=== PATIENT | female | born 1955 | race Caucasian/White ===

== ENCOUNTER 2018-01-15 14:58 | Outpatient (CLI) | payer OTHER | END 2018-01-15 14:59 | disposition home or self-care (01) | LOC: DTY/OP 14:58 | PROVIDERS: ATTEND Family Medicine | DX: E11.9 Type 2 diabetes mellitus without complications (principal) | CPT/HCPCS: 97802 ==

== ENCOUNTER 2018-02-13 19:30 | Outpatient (CLI) | payer OTHER | END 2018-02-13 19:31 | disposition home or self-care (01) | LOC: SLEEPLAB 19:30 | PROVIDERS: ATTEND Family Medicine | DX: G47.33 Obstructive sleep apnea (adult) (pediatric) (principal); E66.9 Obesity, unspecified; R53.83 Other fatigue; R06.83 Snoring; F32.9 Major depressive disorder, single episode, unspecified; E11.9 Type 2 diabetes mellitus without complications; I10 Essential (primary) hypertension; G47.00 Insomnia, unspecified; Z68.39 Body mass index [BMI] 39.0-39.9, adult | CPT/HCPCS: 95811 ==

== ENCOUNTER 2018-03-19 15:42 | Outpatient (CLI) | payer OTHER | END 2018-03-19 15:43 | disposition home or self-care (01) | LOC: BICMAMMO 15:42 | PROVIDERS: ATTEND Family Medicine | DX: Z12.31 Encounter for screening mammogram for malignant neoplasm of breast (principal) | CPT/HCPCS: 77063; 77067 ==

== ENCOUNTER 2019-03-05 15:36 | Emergency (ER) | payer OTHER ==
--- NOTE | 2019-03-05 16:32 | RAD ---
THREE VIEWS OF THE LEFT ANKLE: 03/05/19 COMPARISON: None. HISTORY: Ankle pain and swelling. FINDINGS: Three views of the left ankle shows moderate medial soft tissue swelling. There is a screw in the med ial malleolus from prior fracture repair. Severe degenerative changes are seen in the ankle joint. Th is may be secondary to posttraumatic osteoarthritis. IMPRESSION: Severe left ankle degenerative change without acute osseous abnormality. POS: CET
== END 2019-03-05 17:05 | disposition home or self-care (01) ==
LOC: SCSER 15:36
DX: S93.402A Sprain of unspecified ligament of left ankle, initial encounter (principal); M19.072 Primary osteoarthritis, left ankle and foot; E11.9 Type 2 diabetes mellitus without complications; E78.00 Pure hypercholesterolemia, unspecified; X50.9XXA Other and unspecified overexertion or strenuous movements or postures, initial encounter

== ENCOUNTER 2021-02-12 14:45 | Outpatient (CLI) | payer OTHER | END 2021-02-12 14:46 | disposition home or self-care (01) | LOC: BICMAMMO 14:45 | PROVIDERS: ATTEND Family Medicine | DX: Z12.31 Encounter for screening mammogram for malignant neoplasm of breast (principal); Z91.89 Other specified personal risk factors, not elsewhere classified | CPT/HCPCS: 77063; 77067 ==

== ENCOUNTER 2023-01-17 09:19 | Day surgery (SDC) | payer BC ==
[2023-01-16 12:48] VITALS: BMI 31.2
[2023-01-17] MEDS ORDERED: fentaNYL 50 mcg/mL 1 mL Vial ONE (11:49)
[2023-01-17] MEDS ORDERED: PROPOFOL 200 MG/20 ML VIAL ONE (12:09)
== END 2023-01-17 14:01 | disposition home or self-care (01) ==
LOC: SDC 09:19
PROVIDERS: ATTEND Internal Medicine Gastroenterology
PROC: 0DJ08ZZ Inspection of Upper Intestinal Tract, Via Natural or Artificial Opening Endoscopic (ICD-10-PCS; principal; 2023-01-17)
PROC: 0DJD8ZZ Inspection of Lower Intestinal Tract, Via Natural or Artificial Opening Endoscopic (ICD-10-PCS; principal; 2023-01-17)
DX: K74.60 Unspecified cirrhosis of liver (principal); I85.10 Secondary esophageal varices without bleeding; R63.4 Abnormal weight loss; K76.6 Portal hypertension; K31.89 Other diseases of stomach and duodenum; K57.30 Diverticulosis of large intestine without perforation or abscess without bleeding; K74.69 Other cirrhosis of liver; E11.9 Type 2 diabetes mellitus without complications; I10 Essential (primary) hypertension; N39.3 Stress incontinence (female) (male); E78.5 Hyperlipidemia, unspecified; I25.10 Atherosclerotic heart disease of native coronary artery without angina pectoris; Z68.31 Body mass index [BMI] 31.0-31.9, adult; Z86.010 Personal history of colon polyps; Z79.899 Other long term (current) drug therapy
CPT/HCPCS: 36416; J2704; J3010

== ENCOUNTER → 2023-03-07 | Day surgery (SDC) | payer BC ==
[2023-03-06 13:10] VITALS: BMI 31.2
[~2023-03-07] MED LIST: Ketamine 50 MG/ML (10ML VIAL) ONE; Lidocaine 1% MPF 2 ML VIAL ONE; PHENYLEPHRINE-NS 100 MCG/ML 10 ML SYRINGE ONE; PROPOFOL 200 MG/20 ML VIAL ONE
== END ==
LOC: SDC 06:01
PROVIDERS: ATTEND Internal Medicine Gastroenterology
DX: I85.00 Esophageal varices without bleeding (principal); K74.60 Unspecified cirrhosis of liver; K76.6 Portal hypertension; K31.89 Other diseases of stomach and duodenum; K76.0 Fatty (change of) liver, not elsewhere classified; K64.9 Unspecified hemorrhoids; I10 Essential (primary) hypertension; E78.5 Hyperlipidemia, unspecified; E11.9 Type 2 diabetes mellitus without complications; F41.9 Anxiety disorder, unspecified; R63.4 Abnormal weight loss; F32.A Depression, unspecified; Z86.010 Personal history of colon polyps; Z68.31 Body mass index [BMI] 31.0-31.9, adult; Z79.899 Other long term (current) drug therapy
CPT/HCPCS: 36416; J2704

== ENCOUNTER 2023-06-23 09:40 | Outpatient (CLI) | payer BC ==
[2023-06-23 11:05] LABS: #Monocytes 0.5 10x3/uL (0.0-1.1); #Neutrophils 3.4 10x3/uL (1.5-8.4); %Basophils 0.4 % (0.0-2.0); %Eosinophils 0.6 % (0.0-6.0); %Lymphocytes 23.6 % (18.0-47.0); Hematocrit 45.8 % (34.9-44.5); Hemoglobin 15.5 g/dL (12.0-15.5); Mean Corpuscular HGB CONC 33.8 g/dL (32.0-36.0); Mean Corpuscular Volume 91.6 fl (81.6-98.3); Mean Platelet Volume 10.4 fl (7.4-10.4); Platelet Count 148 10x3/uL (150-450); RBC Distribution Width 14.6 % (11.5-14.5); White Blood Cell (WBC) Count 5.2 10x3/uL (3.5-10.5)
[2023-06-23 11:45] LABS: ALT (SGPT) 17 U/L (8-55); AST (SGOT) 25 U/L (5-34); Albumin 4.2 g/dL (3.4-4.8); Alkaline Phosphatase 65 U/L (40-110); Anion Gap 14 mmol/L (10-20); BUN (Urea Nitrogen) 7 mg/dL (9.8-20.1); Bilirubin, Total 0.6 mg/dL (0.2-1.2); Calc. Creatinine Clearance 0 mL/min (70-130); Calcium 9.3 mg/dL (7.8-10.44); Carbon Dioxide 24 mmol/L (23-31); Chloride 103 mmol/L (98-107); Estimated GFR 95; Globulin 3.6 g/dL (2.4-3.5); Glucose 118 mg/dL (80-115); Protein, Total 7.8 g/dL (5.8-8.1); Sodium 137 mmol/L (136-145)
[2023-06-23 12:00] LABS: Cardiac Risk 4.3 (Less than 4.5); Cholesterol 254 mg/dl (< 200 Desired); HDL Cholesterol 59 mg/dL (>60 Neg Risk); LDL Cholesterol, Calculated 164 mg/dL; Triglycerides 153 mg/dL (Less than 150)
== END 2023-06-23 09:41 | disposition home or self-care (01) ==
LOC: LABBT 09:40
PROVIDERS: ATTEND Surgery
DX: Z01.818 Encounter for other preprocedural examination (principal); D17.4 Benign lipomatous neoplasm of intrathoracic organs
CPT/HCPCS: 80053; 80061; 85025; 93005; 93010

== ENCOUNTER 2023-06-30 08:18 | Day surgery (SDC) | payer BC ==
[2023-06-23 10:07] VITALS: BMI 31.7
[2023-06-30] MEDS ORDERED: Bupivacaine 0.25% HCL 30 ML VIAL ONE (08:37)
[2023-06-30] MEDS ORDERED: EPINEPHrine 1 MG/ML VIAL ONE (08:37)
[2023-06-30] MEDS ORDERED: PROPOFOL 20 ML ONE (08:50)
[2023-06-30] MEDS ORDERED: fentaNYL PF 100 MCG/2 ML SYRINGE ONE (08:50)
[2023-06-30] MEDS ORDERED: Lidocaine 1% PF 5 ML VIAL ONE (08:50)
[2023-06-30] MEDS ORDERED: Rocuronium Bromide 10 MG/ML (10ML VIAL) ONE (08:50)
[2023-06-30] MEDS ORDERED: Sodium Chloride 0.9% 100 ML ONE (09:05)
[2023-06-30] MEDS ORDERED: CEFAZOLIN 2 GM VIAL ONE (09:05)
[2023-06-30] MEDS ORDERED: PHENYLEPHRINE-NS 100 MCG/ML 10 ML SYRINGE ONE (09:29)
[2023-06-30] MEDS ORDERED: ePHEDrine Sulfate 50 MG/10 ML VIAL ONE (09:33)
[2023-06-30] MEDS ORDERED: SUGAMMADEX SODIUM 200 MG/2 ML VIAL ONE (09:53)
[2023-06-30] MEDS ORDERED: Ondansetron PF 4 MG/2 ML Vial ONE (09:53)
[2023-06-30] MEDS ORDERED: HYDROcodone/Acetaminophen 5/325 mg Tablet ONE (10:53)
== END 2023-06-30 11:40 | disposition home or self-care (01) ==
LOC: SDC 08:18
PROVIDERS: ATTEND Surgery
PROC: 0JB60ZZ Excision of Chest Subcutaneous Tissue and Fascia, Open Approach (ICD-10-PCS; principal; 2023-06-30)
DX: D17.1 Benign lipomatous neoplasm of skin and subcutaneous tissue of trunk (principal)
CPT/HCPCS: 36416; 88304; J0171; J0665; J2405; J2704; J3490

== ENCOUNTER 2024-04-22 10:27 | Outpatient (CLI) | payer BC | END 2024-04-22 10:28 | disposition home or self-care (01) | LOC: BICCT 10:27 | PROVIDERS: ATTEND Nurse Practitioner Family | DX: R30.0 Dysuria (principal); K74.60 Unspecified cirrhosis of liver; K76.6 Portal hypertension; I70.90 Unspecified atherosclerosis | CPT/HCPCS: 74176 ==

== ENCOUNTER → 2024-04-27 | Emergency (ER) | payer BC ==
[~2024-04-27] MED LIST changes: -Ketamine 50 MG/ML (10ML VIAL) ONE; +Ketorolac Tromethamine 30 MG (1 mL) VIAL ONE; -Lidocaine 1% MPF 2 ML VIAL ONE; -PHENYLEPHRINE-NS 100 MCG/ML 10 ML SYRINGE ONE; -PROPOFOL 200 MG/20 ML VIAL ONE; +fentaNYL 50 mcg/mL 1 mL Vial ONE
[2024-04-27 15:04] LABS: #Basophils 0.03 10x3/uL (0.0-0.2); %Basophils 0.4 % (0.0-1.0); %Eosinophils 0.6 % (0.0-10.0); %Lymphocytes 31.7 % (21.0-51.0); %Monocytes 8.1 % (0.0-10.0); %Neutrophils 58.8 % (42.0-75.0); Hematocrit 44.4 % (36.0-47.0); Hemoglobin 15.2 g/dL (12.0-16.0); Mean Corpuscular HGB CONC 34.2 g/dL (32.0-36.0); Mean Corpuscular Hemoglobin 30.3 pg (27.0-31.0); Mean Corpuscular Volume 88.4 fL (78.0-98.0); Platelet Count 132 10x3/uL (130-400); RBC Distribution Width 14.7 % (11.5-14.5); Red Blood Cell (RBC) Count 5.02 mill/uL (4.20-5.40)
[2024-04-27 15:05] LABS: ALT (SGPT) 16 U/L (8-55); AST (SGOT) 26 U/L (5-34); Albumin 3.4 g/dL (3.4-4.8); Alkaline Phosphatase 59 U/L (40-110); Anion Gap 12 mmol/L (10-20); BUN (Urea Nitrogen) 6 mg/dL (9.8-20.1); Bilirubin, Total 0.5 mg/dL (0.2-1.2); Calc. Creatinine Clearance 0 mL/min (70-130); Calcium 9.3 mg/dL (7.8-10.44); Carbon Dioxide 27 mmol/L (23-31); Chloride 105 mmol/L (98-107); Estimated GFR 96; Globulin 3.9 g/dL (2.4-3.5); Glucose 91 mg/dL (80-115); Lipase 13 U/L (8-78); Potassium 4.2 mmol/L (3.5-5.1); Protein, Total 7.3 g/dL (5.8-8.1); Sodium 140 mmol/L (136-145)
[2024-04-27 16:37] LABS: Troponin I 0.014 ng/mL (< 0.028)
[2024-04-27 19:51] LABS: Bilirubin Negative (Negative); Blood, Urine Negative (Negative); CAUTI Indications for Culture Dysuria,urgency,freq; Clarity Clear (Clear); Glucose, Urine (Dipstick) Greater than 1000 mg/dL (Negative); Ketone, Urine Negative (Negative); Leukocyte Negative Leu/uL (Negative); Nitrite Negative (Negative); Protein, Urine (Dipstick) 20 mg/dL (Neg-Trace); Urobilinogen Normal mg/dL (Less than 2); pH, Urine 6.5 (5.0-9.0)
[2024-04-27 20:14] LABS: Specific Gravity, Urine Greater than 1.060 (1.002-1.036)
[2024-04-27 20:16] LABS: Bacteria/HPF 2+ HPF (None Seen)
[2024-04-27 20:19] LABS: RBC/HPF 0-3 HPF (0-3); Yeast-Budding Rare HPF (None Seen)
[2024-04-27 20:21] LABS: Urine Culture Reflex No No
== END ==
LOC: ERS 14:16
DX: M51.26 Other intervertebral disc displacement, lumbar region (principal); R10.9 Unspecified abdominal pain; E11.9 Type 2 diabetes mellitus without complications
CPT/HCPCS: 36415; 72148; 74177; 80053; 81001; 83690; 84484; 85025; 93005; 96374; 96375; J1885; J3010